=== PATIENT | male | born 1955 | race Caucasian/White ===

== ENCOUNTER 2018-11-10 16:45 | Emergency (ER) | payer MEDICARE, OTHER ==
[~2018-11-10] VITALS: Ht 195.6 cm; Wt 116.0 kg
[2018-11-10 16:58] VITALS: BP 127/97
[2018-11-10] MEDS ORDERED: COLCHICINE 0.6 MG TABLET ONE (18:25)
[2018-11-10] MEDS ORDERED: COLCHICINE 0.6 MG TABLET PO ONE (18:30)
== END 2018-11-10 18:41 | disposition home or self-care (01) ==
LOC: ED 17:21
DX: M13.831 Other specified arthritis, right wrist (principal); M13.841 Other specified arthritis, right hand; M10.9 Gout, unspecified
CPT/HCPCS: 99283